=== PATIENT | female | born 1960 | race Caucasian/White ===

== ENCOUNTER 2017-04-20 04:53 | Emergency (ER) | payer OTHER ==
[~2017-04-20] VITALS: Ht 167.6 cm; Wt 70.5 kg
[~2017-04-20 04:53] MED LIST: OMEP20 PO
[2017-04-20 04:58] VITALS: BP 135/82
[2017-04-20] MEDS ORDERED: DiphenhydrAMINE HCL 25 MG CAPSULE PO ONE (05:30)
[2017-04-20] MEDS ORDERED: PredniSONE 20 MG TABLET PO ONE (05:30)
== END 2017-04-20 05:47 | disposition home or self-care (01) ==
LOC: EMS 04:55
DX: L50.9 Urticaria, unspecified (principal)
CPT/HCPCS: 99283; J7512

== ENCOUNTER 2024-08-03 13:17 | Emergency (ER) | payer OTHER ==
[~2024-08-03] VITALS: Ht 162.6 cm; Wt 70.5 kg
[2024-08-03 13:24] VITALS: BP 153/90; PULSE 113; RESP 14; TEMP 97.9; O2SAT 98
[2024-08-03] MEDS ORDERED: HYDR-4072 PO (13:40)
== END 2024-08-03 13:46 | disposition home or self-care (01) ==
LOC: EMS 13:17
DX: G89.29 Other chronic pain (principal); M54.50 Low back pain, unspecified; Z88.1 Allergy status to other antibiotic agents
CPT/HCPCS: 99283; Z7502

== ENCOUNTER 2024-09-04 13:10 | Emergency (ER) | payer MEDICAID ==
[~2024-09-04] VITALS: Ht 167.6 cm; Wt 81.0 kg
[~2024-09-04 13:10] MED LIST changes: +HYDR-4072 PO; -OMEP20 PO
[2024-09-04] MEDS: HYDROCODONE/ACETAMINOPHEN 10-325 MG TABLET PO ONE (15:46)
[2024-09-04 17:00] VITALS: BP 122/78; PULSE 58; RESP 18; TEMP 98.1; O2SAT 100
[2024-09-04] MEDS ORDERED: HYDR-4072 PO (17:05)
== END 2024-09-04 17:33 | disposition home or self-care (01) ==
LOC: EMS 13:10
DX: G89.29 Other chronic pain (principal); M54.6 Pain in thoracic spine; M79.601 Pain in right arm; Z88.1 Allergy status to other antibiotic agents
CPT/HCPCS: 99283